=== PATIENT | female | born 1945 | race African-American/Black ===

== ENCOUNTER 2017-02-17 22:09 | Emergency (ER) | payer OTHER ==
[~2017-02-17] VITALS: Ht 172.7 cm; Wt 105.7 kg
[2017-02-18 00:17] VITALS: BP 119/71
== END 2017-02-18 00:29 | disposition home or self-care (01) ==
LOC: ER 22:12
DX: E11.42 Type 2 diabetes mellitus with diabetic polyneuropathy (principal); Z79.4 Long term (current) use of insulin
CPT/HCPCS: 82962